=== PATIENT | female | born 1985 | race Native Hawaiian/Other Pacific Islander ===

== ENCOUNTER 2018-02-01 11:36 | Emergency (ER) | payer OTHER, BC ==
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
[2018-02-01 12:52] VITALS: BP 110/68; PULSE 69; RESP 18; TEMP 97.8; O2SAT 100
== END 2018-02-01 14:50 | disposition home or self-care (01) ==
LOC: SUPCPDRO 11:36 → H.ER 11:36
DX: R51 Headache (principal); M54.2 Cervicalgia; S09.90XA Unspecified injury of head, initial encounter; V43.52XA Car driver injured in collision with other type car in traffic accident, initial encounter; Y92.410 Unspecified street and highway as the place of occurrence of the external cause; Z88.0 Allergy status to penicillin